=== PATIENT | female | born 1970 | race Caucasian/White ===

== ENCOUNTER 2016-12-11 23:17 | Emergency (ER) | payer OTHER, MEDICAID ==
[2016-12-12] MEDS ORDERED: KETOROLAC 30 MG/1 ML SDV IM ONE (01:12)
[2016-12-12] MEDS ORDERED: ONDANSETRON DISINTEGRATING 4 MG TAB PO ONE (01:13)
--- NOTE | 2016-12-12 02:40 | EDPHY ---
H & P Stated Complaint: [facility] fall 12/10/16- back pain Time Seen by Provider: 12/12/16 00:59 HPI/ROS: HPI The patient presents with lower back pain which began after a fall yesterday. The patient works at [employer] and was walking and slipped and fell landing on the ground yesterday. She was taking ibuprofen and Xanax for the pain. She return to work tonight and fell again in a similar fashion. She now has pain in her lower back which is achy, constant, moderate in severity, worse with ambulation. She denies any numbness or tingling of her legs. She does not have any bowel or bladder incontinence. She does not have any fevers or chills. REVIEW OF SYSTEMS Constitutional: No fever, no chills. Eyes: No discharge. ENT: No sore throat. Cardiovascular: No chest pain, no palpitations. Respiratory: No cough, no shortness of breath. Gastrointestinal: No abdominal pain, no vomiting. Genitourinary: No hematuria. Musculoskeletal: Positive for back pain. Skin: No rashes. Neurological: No headache. PMHx: Von Willebrand's disease, status post hysterectomy Soc Hx: Works at [employer], denies drug use PHYSICAL General Appearance: Alert, no distress Eyes: Pupils equal and round no pallor or injection ENT, Mouth: Mucous membranes moist Respiratory: There are no retractions, lungs are clear to auscultation Cardiovascular: Regular rate and rhythm Gastrointestinal: Abdomen is soft and non-tender, no masses, bowel sounds normal Back: Tenderness at approximately L1-1 vertebral process, mild paraspinal tenderness as well Neurological: A&O, moves all extremities, 5/5 strength in lower extremities which is symmetric, sensation is intact to light touch Skin: Warm and dry, no rashes Musculoskeletal: Neck is supple non tender Extremities: symmetrical, full range of motion Psychiatric: Patient is oriented X 3, there is no agitation Source: Patient - Personal History LMP (Females 10-55): Hysterectomy Current Tetanus Diphtheria and Acellular Pertussis (TDAP): Yes - Medical/Surgical History Hx Asthma: No Hx Chronic Respiratory Disease: No Hx Diabetes: No Hx Cardiac Disease: No Hx Renal Disease: No Hx Cirrhosis: No Hx Alcoholism: No Hx HIV/AIDS: No Hx Splenectomy or Spleen Trauma: No Other PMH: HYSTERECTOMY/?RA/VON WILLEBRANDS - Social History Smoking Status: Current every day smoker Constitutional: Initial Vital Signs Temperature (C) 36.7 C 12/11/16 23:22 Heart Rate 65 12/11/16 23:22 Respiratory Rate 20 12/11/16 23:22 Blood Pressure 108/65 12/11/16 23:22 O2 Sat (%) 98 12/11/16 23:22 O2 Delivery Mode Room Air Allergies/Adverse Reactions: methadone Allergy (Verified 12/11/16 23:21) methadone HCl [From Methadose] Allergy (Verified 12/11/16 23:21) Home Medications: Medication Instructions Recorded CLONAZEPAM 08/29/16 Levothyroxine 08/29/16 Zofran 08/29/16 Xanax 12/11/16 Hydrocodone/APAP 5/325 [Ogema 1 - 2 tab PO Q6H PRN #20 tab 12/12/16 5/325 (*)] oxyCODONE HCL/ACETAMINOPHEN 1 each PO Q6H #30 tablet 12/12/16 [Percocet 5-325 mg Tablet] Medical Decision Making - Diagnostics Imaging: CT of lumbar spine 1. Acute minimal L1 asymmetric compression fracture with 15% height loss on the left. 2. Otherwise, normal CT of the lumbar spine. Discussed with Dr. Montilla of Radiology Differential Diagnosis: This is a 46-year-old female who slipped and fell yesterday, now complaining of lumbar spinal pain. She has a normal neurologic evaluation with no red flag features of her back pain except for tenderness over the bone of L1 region. Differential diagnosis includes compression fracture, disc herniation, less likely cauda equina. In the emergency room, patient was given pain medication IV with improvement in her symptoms. CT scan was performed which did show a vertebral compression fracture at L1. I feel this is likely the cause of her symptoms. I will discharge her with pain medication and follow up with her primary care doctor as well as Neurosurgery. She is in agreement with this plan. We are able to a walker in the emergency department without any difficulty. - Data Points Medications Given: Discontinued Medications Acetaminophen/Hydrocodone Bitart (Ogema 5/325mg Prepack#6) 1 btl TAKEHOME EDNOW ONE Stop: 12/12/16 02:43 Last Admin: 12/12/16 02:45 Dose: 1 btl Ketorolac Tromethamine (Toradol) 30 mg IM EDNOW ONE Stop: 12/12/16 01:13 Last Admin: 12/12/16 01:27 Dose: 30 mg Morphine Sulfate (Morphine) 4 mg IM EDNOW ONE Stop: 12/12/16 01:13 Last Admin: 12/12/16 01:27 Dose: 4 mg Ondansetron HCl (Zofran Odt) 4 mg PO EDNOW ONE Stop: 12/12/16 01:14 Last Admin: 12/12/16 01:27 Dose: 4 mg Oxycodone/Acetaminophen (Percocet 5/325mg Prepack#4) 1 btl TAKEHOME EDNOW ONE Stop: 12/12/16 03:19 Last Admin: 12/12/16 03:24 Dose: 1 btl Departure - Departure Disposition: Home, Routine, Self-Care Clinical Impression: Compression fracture of vertebra Condition: Good Instructions: Hydrocodone/Acetaminophen (By mouth), Vertebral Compression Fracture (ED) Additional Instructions: You have a broken L1 vertebrae. You should take ibuprofen 600 mg every 6 hours around the clock for pain. If your pain persists, he should take Ogema on top of this. You should follow up with the neurosurgeon Dr. Suazo. Referrals: LAMONTE FALCON [Other] - As per Instructions Jonny Suazo MD [Medical Doctor] - As per Instructions Stand Alone Forms: Work Limited Duty, Work Excuse Prescriptions: Hydrocodone/APAP 5/325 [Ogema 5/325 (*)] 1 - 2 tab PO Q6H PRN #20 tab PRN Reason: Pain, Breakthrough oxyCODONE HCL/ACETAMINOPHEN [Percocet 5-325 mg Tablet] 1 each PO Q6H #30 tablet
[2016-12-12] MEDS ORDERED: HYDROCOD/APAP 5/325 PREPACK#6 BTL TAKEHOME ONE (02:42)
[2016-12-12] MEDS ORDERED: OXYCODONE/APAP 5/325MG PREPACK#4 BTL TAKEHOME ONE ×2 (03:12→03:18)
[2016-12-12 03:26] VITALS: BP 122/81; PULSE 63; RESP 20; TEMP 98.4; O2SAT 98
== END 2016-12-12 03:26 | disposition home or self-care (01) ==
DX: S32.010A Wedge compression fracture of first lumbar vertebra, initial encounter for closed fracture (principal); F17.200 Nicotine dependence, unspecified, uncomplicated; W01.0XXA Fall on same level from slipping, tripping and stumbling without subsequent striking against object, initial encounter
CPT/HCPCS: J1885